=== PATIENT | female | born 1975 | race Caucasian/White ===

== ENCOUNTER 2018-03-05 15:41 | Outpatient (REF) | payer BC, SELFPAY ==
--- NOTE | 2018-03-05 11:45 | PAPFT_PTH ---
PATIENT: Princess Pitt LOC: [facility] U#:[id number] AGE/SX: 42/F ROOM: RE03/05/[address]: Rubi Merino MD, DC : 1975 BED: DIS: 03/05/2018 SPEC #: [id number] RECD: 03/06/18 12:57 STATUS: STEPHANIE REQ #: [id number] AUGIE: 03/05/18 11:[address]: Rubi Merino DEPT: [facility] Cytology RECD BY: Clarissa Holm Tissues: 1 - CX/ENDOCX FOR PAP SMEARS Procedures: PAP THIN PREP/UVM Screening HPV DNA PROBE Comments: [id number]
== END 2018-03-05 15:42 ==
LOC: LBN 15:41
PROVIDERS: PCP Family Medicine; Visit Provider Family Medicine
DX: Z12.4 Encounter for screening for malignant neoplasm of cervix (principal); Z11.51 Encounter for screening for human papillomavirus (HPV)
CPT/HCPCS: 88142; 87624

== ENCOUNTER 2018-07-13 00:47 | Outpatient (CLI) | payer BC, SELFPAY ==
--- NOTE | 2018-07-13 13:19 | DI.COMBO_ITS ---
SYMPTOM/DIAGNOSIS: RT BREAST PAIN, LUMP, N64.4,N63.0 MAMMOGRAMS AND RIGHT BREAST ULTRASOUND: Mammograms were interpreted according to the usual protocol including computer analysis with CAD system, tomosynthesis and C view imaging. A marker was placed on the area of the palpable abnormality at the inferior right breast. There are no prior mammograms. The breasts are composed of scattered fibroglandular densities. Breast density, Category B. No suspicious masses or suspicious microcalcifications are seen. No abnormality is seen in the area marked. No skin thickening or skin calcifications are seen. Right breast ultrasound shows a small area of decreased echogenicity in the subcutaneous fat at the inferior right breast, 4 cm. from the nipple, corresponding to the palpable abnormality. There is mild skin thickening in this location. The findings may represent a small area of inflammation. Clinical correlation is recommended. IMPRESSION: Category 2, negative mammogram and right breast ultrasound with benign findings of a 4 mm., hypoechoic area in the skin. No abnormality is seen within the breast tissue. MQSA ASSESSMENT OF FINDINGS: Negative with benign findings. Category 2. Patient will receive a letter notifying them of these results. BI-RADS category B. There are scattered areas of fibroglandular density.
== END 2018-07-13 01:07 ==
PROVIDERS: PCP Family Medicine; Visit Provider Family Medicine
DX: N64.4 Mastodynia (principal); N63.10 Unspecified lump in the right breast, unspecified quadrant; N60.81 Other benign mammary dysplasias of right breast
CPT/HCPCS: 76642; 77062; 77066; G0279

== ENCOUNTER 2019-03-08 11:38 | Outpatient (CLI) | payer BC, SELFPAY ==
[2019-03-08 15:46] LABS: TSH (W/Ref FT4) 0.43 uIU/mL (0.36-3.74)
== END 2019-03-08 11:58 ==
PROVIDERS: PCP Family Medicine; Visit Provider Family Medicine
DX: E03.9 Hypothyroidism, unspecified (principal)
CPT/HCPCS: 36415; 84443

== ENCOUNTER 2019-09-19 14:25 | Outpatient (CLI) | payer BC, SELFPAY ==
[2019-09-19 15:43] LABS: Anion Gap 10.1 mmol/L (3-11); BUN 15 mg/dL (7-18); CO2 28.9 mmol/L (21.0-32.0); CREATININE 0.67 mg/dL (0.55-1.02); Calcium 9.1 mg/dL (8.5-10.1); Calculated LDL 140 mg/dL (<100); Chloride 103 mmol/L (98-107); Cholesterol 228 mg/dL (<200); Glucose 90 mg/dL (74-106); HDL Cholesterol 70 mg/dL (40-60); Potassium 4.1 mmol/L (3.5-5.1); Sodium 142 mmol/L (136-145); TSH (W/Ref FT4) 4.32 uIU/mL (0.36-3.74); Triglyceride 90 mg/dL (<150)
[2019-09-19 16:01] LABS: FREE T4 1.15 ng/dL (0.76-1.46)
== END 2019-09-19 14:45 ==
PROVIDERS: PCP Family Medicine
DX: E03.9 Hypothyroidism, unspecified (principal); F41.8 Other specified anxiety disorders; R00.2 Palpitations; G47.00 Insomnia, unspecified; Z00.00 Encounter for general adult medical examination without abnormal findings
CPT/HCPCS: 36415; 80048; 80061; 84439; 84443

== ENCOUNTER 2019-11-05 01:29 | Outpatient (CLI) | payer BC, SELFPAY | END 2019-11-05 01:49 | PROVIDERS: PCP Family Medicine; Visit Provider Family Medicine | DX: E03.9 Hypothyroidism, unspecified (principal) | CPT/HCPCS: 36415; 84443 ==

== ENCOUNTER 2020-03-17 02:57 | Outpatient (CLI) | payer BC, SELFPAY | END 2020-03-17 03:17 | PROVIDERS: PCP Family Medicine; Visit Provider Family Medicine | DX: E03.9 Hypothyroidism, unspecified (principal); R00.2 Palpitations | CPT/HCPCS: 36415; 84443 ==

== ENCOUNTER 2020-10-15 15:06 | Outpatient (REF) | payer BC, SELFPAY ==
--- NOTE | 2020-10-16 | PAPFT_PTH ---
PATIENT: Princess Pitt LOC: [facility] U#:[id number] AGE/SX: 45/F ROOM: RE10/15/[address]: Rubi Merino MD, DC : 1975 BED: DIS: 10/15/2020 SPEC #: [id number] RECD: 10/16/20 12:57 STATUS: STEPHANIE REQ #: [id number] AUGIE: 10/16/20 00:[address]: Rubi Merino DEPT: [facility] Cytology RECD BY: Clarissa Holm Tissues: 1 - CX/ENDOCX FOR PAP SMEARS Procedures: PAP THIN PREP/UVM Screening HPV DNA PROBE Comments: [id number] (CHLAMYDIA/GC)
[2020-10-19 15:50] LABS: Chlamydia Result Negative (Negative); GC Result Negative (Negative)
== END 2020-10-15 15:07 | disposition home or self-care (01) ==
LOC: LBN 15:06
PROVIDERS: PCP Family Medicine; Visit Provider Family Medicine
DX: Z11.3 Encounter for screening for infections with a predominantly sexual mode of transmission (principal); Z12.4 Encounter for screening for malignant neoplasm of cervix; Z11.51 Encounter for screening for human papillomavirus (HPV)
CPT/HCPCS: 87491; 87591; 88142; 87624

== ENCOUNTER 2020-12-30 16:30 | Emergency (ER) | payer BC, SELFPAY ==
[2020-12-30] VITALS (35 sets, daily range): BP systolic 102–132; BP diastolic 46–84; PULSE 65–86; RESP 11–20; TEMP 36.1; O2SAT 96–100
--- NOTE | 2020-12-30 16:30 | RT.EKG_ITS ---
APPROVED REPORT Exam: Resting ECG Reason for Exam: chest pain Patient Location: E HR:77 bpm ECG Measurements Heart Rate 77 AXIS IN 129 P 19 QRSd 91 QRS 63 QT 369 T 28 QTc 419 Conclusion Sinus rhythm...normal P axis, V-rate 60- 99. No STEMI. I have reviewed and interpreted ECG and agree with software generated interpretation.
--- NOTE | 2020-12-30 16:45 | DI.RAD_ITS ---
Exam(s) XR CHEST 2V PA LATERAL EXAM: XR CHEST 2V PA LATERAL CLINICAL HISTORY: chest pain TECHNIQUE: 2D digital imaging was performed. COMPARISON: No exams were available for comparison FINDINGS: MEDIASTINUM: Normal. HEART: Normal. PULMONARY VASCULATURE: Normal. LUNGS: Clear. PLEURAL SPACE: No pleural effusion or pneumothorax. BONE:Within normal limits for the patient's age. OTHER FINDINGS:Normal. IMPRESSION: No acute pulmonary findings. DATA REPOSITORY: RADIATION DOSE DELIVERED:
[2020-12-30] MEDS: Aspirin 81 MG CHEW 324 MG CH (17:05)
[2020-12-30] MEDS: Normal Saline 1,000 ML 1000 ML IV (17:06)
[2020-12-30 17:14] LABS: Abs Immature Grans 0.03 10^3/uL (0.0-0.06); Absolute Basophil Count 0.03 10^3/uL (0.0-0.2); Absolute Eosinophil Count 0.06 10^3/uL (0.0-0.7); Absolute Lymphocyte Count 2.31 10^3/uL (1.2-3.4); Absolute Monocyte Count 0.36 10^3/uL (0.1-0.8); Absolute Neutrophil Count 4.03 10^3/uL (1.2-6.7); Basophils % 0.4; Eosinophils % 0.9; HCT 39.2 % (36.0-46.0); HGB 13.3 g/dL (11.2-15.7); Immature Grans % 0.4; Lymphocytes % 33.9; MCHC 33.9 % (32.0-36.0); MCV 88.3 fL (80-95); Monocytes % 5.3; Neutrophils % 59.1; Nucleated RBC 0 %; Platelet Count 266 10^3/uL (130-400); RBC 4.44 10^6/uL (3.93-5.22); RDW 11.6 % (11.7-14.6); RDW-SD 37.7 fL; WBC 6.82 10^3/uL (4.4-10.8)
--- NOTE | 2020-12-30 17:25 | DI.VRAD_ITS ---
PROCEDURE INFORMATION: Exam: XR Chest Exam date and time: 12/30/2020 5:00 PM Age: 45 years old Clinical indication: Other: Chest pain TECHNIQUE: Imaging protocol: XR of the chest. Views: 2 views. COMPARISON: No relevant prior studies available. FINDINGS: Lungs: Unremarkable. No consolidation. Pleural spaces: Unremarkable. No pleural effusion. No pneumothorax. Heart/Mediastinum: Unremarkable. No cardiomegaly. Bones/joints: Unremarkable. IMPRESSION: No acute findings. Dictated and Authenticated by: Mckay Estes MD. Ordering:YOSI Mederos MD
[2020-12-30 17:34] LABS: ALT 36 U/L (14-59); AST 19 U/L (15-37); Albumin 3.8 g/dL (3.4-5.0); Alkaline Phosphatase 80 U/L (46-116); Anion Gap 9.1 mmol/L (3-11); BUN 12 mg/dL (7-18); Bilirubin, Total 0.2 mg/dL (0.2-1.0); CO2 27.9 mmol/L (21.0-32.0); CREATININE 0.7 mg/dL (0.55-1.02); Calcium 9.2 mg/dL (8.5-10.1); Chloride 105 mmol/L (98-107); Glucose 98 mg/dL (74-106); Sodium 142 mmol/L (136-145); Total Protein 7.3 g/dL (6.4-8.2)
--- NOTE | 2020-12-30 17:34 | ED.GENADUL_ITS ---
Discharge Plan Disposition Patient Disposition: HOME Condition: Stable Discharge Details Clinical Impression: Chest pain Primary Care Provider: Ruib Merino ED Provider: Gatito Gloria Home Meds and New Rx's Prescriptions: Continued metoprolol tartrate 50 mg tablet 50 mg PO BID Qty: 180 RF: 5 cholecalciferol (vitamin D3) [Vitamin D3] 2,000 UNIT capsule 2,000 unit PO DAILY Qty: 90 RF: 12 multivitamin [Daily Multi-Vitamin] 1 EACH tablet 1 ea PO DAILY RF: 0 albuterol sulfate [ProAir HFA] 90 mcg/actuation HFA aerosol inhaler 2 puff Inhalation Q4H PRN Qty: 1 RF: 8 selenium sulfide 2.25 % shampoo 10 ml TP DAILY Qty: 180 RF: 3 bupropion HCl 300 mg tablet extended release 24 hr 300 mg PO QAM Qty: 90 RF: 4 fluticasone propionate 50 mcg/actuation spray,suspension 2 spray NS BID PRN (Reason: allergy symptoms) Qty: 9.9 RF: 3 lorazepam 0.5 mg tablet 0.5 mg PO DAILY MDD 1 PRN (Reason: anxiety) Qty: 30 RF: 4 nortriptyline 25 mg capsule 25 mg PO HS Qty: 90 RF: 4 nystatin 100,000 unit/gram powder 1 applic Topical BID PRN (Reason: rash) Qty: 60 RF: 3 buspirone 10 mg tablet 10 mg PO TID Qty: 90 RF: 5 loratadine 10 mg tablet 10 mg PO DAILY Qty: 90 RF: 4 No Action levothyroxine 175 mcg tablet 175 mcg PO DAILY Qty: 90 RF: 5 Discharge Instructions Instructions: Chest Pain (ED) Additional Instructions: At this time your rapid cardiac rule out is unremarkable, no signs of any obvious emergent process. Please watch for new or worsening symptoms and return to the ER for any concerns. Lastly, I recommend reaching out your primary care provider tomorrow to make them aware of your ER visit and need for outpatient reevaluation. Discharge Data Discharge Date/Time-TO BE ENTERED AT DEPARTURE: 12/30/20 20:47 Medical Decision Making This is a 45-year-old female presents to the ER today reporting sharp intermittent central chest pain that began approximately 3 hours ago associated with lightheadedness, she is pain-free at this time. She appears well, nontoxic. Differential includes not excluded to ACS, PE, costochondritis, pneumonia, gastritis, esophagitis, GERD, anxiety, palpitations, etc. Will obtain IV access, give 1 L IV fluids, give a full dose aspirin and initiate cardiac work-up including D-dimer. Patient is comfortable with this plan. Laboratory values are unremarkable for any obvious emergent process. White blood cell count of 6.82, INR 1.0 D-dimer 249 chemistries are unremarkable, troponin is less than 0.05. TSH 0.10 free T4 1.47. Chest x-ray negative Initial work-up unremarkable. Upon reevaluation patient reports that she has remained pain-free. She feels as though her lightheadedness is much improving. She is remained hemodynamically stable. She is agreeable to awaiting repeat troponin and EKG at the 3-hour jaiden. Given her D-dimer is normal, will not pursue CTA of the chest. Repeat EKG performed at 195. Please see official report by Dr. Verdugo. Sinus rhythm, ventricular rate of 72. No STEMI Repeat troponin remains less than 0.05. Upon reevaluation we discussed her repeat troponin and EKG. Patient has been pain-free her entire ER visit. She reports that her lightheadedness has almost completely resolved with the IV fluid and aspirin. Clinically she appears well, nontoxic, extremely low suspicion for ACS. I do believe the patient can be safely discharged with close outpatient follow-up and encouraged to return to the ER for new or worsening symptoms. Both patient and her mother are comfortable with this plan. They have no additional questions or concerns. Medical Records Medical records reviewed: Yes I reviewed the patient's medical records. Imaging Data Radiologic Study: Attestation: I personally reviewed and interpreted this imaging study as follows: Imaging: X-Ray Radiologist's impression: Chest x-ray negative Lab Data Lab results reviewed: Yes I reviewed the patient's lab results. Labs: Laboratory Tests Range/Units 12/30/20 12/30/20 12/30/20 16:35 16:43 16:43 WBC (4.4-10.8) 10^3/uL 6.82 RBC (3.93-5.22) 10^6/uL 4.44 Hgb (11.2-15.7) g/dL 13.3 Hct (36.0-46.0) % 39.2 MCV (80-95) fL 88.3 MCH (27.0-33.0) pg 30.0 MCHC (32.0-36.0) % 33.9 RDW (11.7-14.6) % 11.6 L Plt Count (130-400) 10^3/uL 266 MPV (8.0-11.0) fL 10.0 Immature Gran % 0.4 Neutrophils % 59.1 Lymphocytes % 33.9 Monocytes % 5.3 Eosinophils % 0.9 Basophils % 0.4 Nucleated RBC % % 0 Absolute Neutrophils (1.2-6.7) 10^3/uL 4.03 Absolute Lymphocytes (1.2-3.4) 10^3/uL 2.31 Absolute Monocytes (0.1-0.8) 10^3/uL 0.36 Absolute Eosinophils (0.0-0.7) 10^3/uL 0.06 Absolute Basophils (0.0-0.2) 10^3/uL 0.03 PT (9.3-11.0) sec 10.1 INR (0.9-1.1) 1.0 APTT (21.0-27.5) sec 25.3 D-Dimer (<500) ng/mlFEU 249 Sodium (136-145) mmol/L 142 Potassium (3.5-5.1) mmol/L 4.0 Chloride (98-107) mmol/L 105 Carbon Dioxide (21.0-32.0) mmol/L 27.9 Anion Gap (3-11) mmol/L 9.1 BUN (7-18) mg/dL 12 Creatinine (0.55-1.02) mg/dL 0.7 Estimated GFR/1.73 m2 (mL/min/1.73m2) >= 60.00 Glucose (74-106) mg/dL 98 Calcium (8.5-10.1) mg/dL 9.2 Magnesium (1.8-2.4) mg/dL 2.0 Total Bilirubin (0.2-1.0) mg/dL 0.2 AST (15-37) U/L 19 ALT (14-59) U/L 36 Alkaline Phosphatase (46-116) U/L 80 Troponin I (<0.06) ng/mL < 0.05 Total Protein (6.4-8.2) g/dL 7.3 Albumin (3.4-5.0) g/dL 3.8 TSH (0.36-3.74) uIU/mL 0.10 L Free T4 (0.76-1.46) ng/dL 1.47 H Urine Color (Yellow) Urine Clarity (Clear) Urine pH (5-8) Ur Specific [place] (1.005-1.025) Urine Protein (Negative) mg/dL Urine Ketones (Negative) mg/dL Urine Blood (Negative) Urine Nitrite (Negative) Urine Bilirubin (Negative) Urine Urobilinogen (Up TO 0.2) EU/dL Ur Leukocyte Esterase (Negative) Urine RBC (0-2) HPF Urine WBC (0-5) HPF Ur Epithelial Cells (Negative) HPF Urine Crystals (Negative) HPF Urine Bacteria (Negative) HPF Urine Casts (Negative) LPF Urine Mucus (Negative) Urine Other (Negative) Ur Culture Indicated? Urine Glucose (Negative) mg/dL Range/Units 12/30/20 12/30/20 17:40 19:45 WBC (4.4-10.8) 10^3/uL RBC (3.93-5.22) 10^6/uL Hgb (11.2-15.7) g/dL Hct (36.0-46.0) % MCV (80-95) fL MCH (27.0-33.0) pg MCHC (32.0-36.0) % RDW (11.7-14.6) % Plt Count (130-400) 10^3/uL MPV (8.0-11.0) fL Immature Gran % Neutrophils % Lymphocytes % Monocytes % Eosinophils % Basophils % Nucleated RBC % % Absolute Neutrophils (1.2-6.7) 10^3/uL Absolute Lymphocytes (1.2-3.4) 10^3/uL Absolute Monocytes (0.1-0.8) 10^3/uL Absolute Eosinophils (0.0-0.7) 10^3/uL Absolute Basophils (0.0-0.2) 10^3/uL PT (9.3-11.0) sec INR (0.9-1.1) APTT (21.0-27.5) sec D-Dimer (<500) ng/mlFEU Sodium (136-145) mmol/L Potassium (3.5-5.1) mmol/L Chloride (98-107) mmol/L Carbon Dioxide (21.0-32.0) mmol/L Anion Gap (3-11) mmol/L BUN (7-18) mg/dL Creatinine (0.55-1.02) mg/dL Estimated GFR/1.73 m2 (mL/min/1.73m2) Glucose (74-106) mg/dL Calcium (8.5-10.1) mg/dL Magnesium (1.8-2.4) mg/dL Total Bilirubin (0.2-1.0) mg/dL AST (15-37) U/L ALT (14-59) U/L Alkaline Phosphatase (46-116) U/L Troponin I (<0.06) ng/mL < 0.05 Total Protein (6.4-8.2) g/dL Albumin (3.4-5.0) g/dL TSH (0.36-3.74) uIU/mL Free T4 (0.76-1.46) ng/dL Urine Color (Yellow) Yellow Urine Clarity (Clear) Clear Urine pH (5-8) 6.0 Ur Specific [place] (1.005-1.025) 1.020 Urine Protein (Negative) mg/dL Negative Urine Ketones (Negative) mg/dL Negative Urine Blood (Negative) Small H Urine Nitrite (Negative) Negative Urine Bilirubin (Negative) Negative Urine Urobilinogen (Up TO 0.2) EU/dL 0.2 Ur Leukocyte Esterase (Negative) Negative Urine RBC (0-2) HPF 0-2 Urine WBC (0-5) HPF 0-2 Ur Epithelial Cells (Negative) HPF Rare Urine Crystals (Negative) HPF Negative Urine Bacteria (Negative) HPF Negative Urine Casts (Negative) LPF Negative Urine Mucus (Negative) Negative Urine Other (Negative) Negative Ur Culture Indicated? No Urine Glucose (Negative) mg/dL Negative ECG Data Attestation: I personally reviewed and interpreted this ECG (s) as follows: Interpretation: Please see official report by Dr. Verdugo. Sinus rhythm, ventricular rate of 77. No STEMI. HPI General Mode of arrival: ambulatory . Date/Time Provider Initiated Documentation: 12/30/20 16:50 . Limitations to Documentation: no limitations . Information obtained by: patient . HPI Narrative: This is a 45-year-old female past medical history that includes anxiety, central pain syndrome, depression, anxiety, reactive airway disease, obesity, presenting to the ER complaining of chest pain. She states that while she was at work approximately 3 hours ago she developed midsternal chest pain that was sharp and intermittent in nature, associated with some lightheadedness. Currently she has no chest pain whatsoever. She reports that at the time it began she felt a little sweaty but that too has resolved. Now only feels slightly lightheaded. Denies recent illness or trauma. Denies headache, visual changes, feeling the room spinning, neck pain, fever, cough, shortness of breath, radiation of the chest pain, back pain, abdominal pain, nausea, vomiting, change in bowel or bladder function, numbness, tingling, weakness, pain or swelling in her legs. Patient reports that she has a past had palpitations and does take metoprolol for this. Initially she thought maybe she was having palpitations but did not feel the same. She denies any other cardiac history. Patient is not a smoker. Related Data Home Medications Medication Instructions Recorded Confirmed cholecalciferol (vitamin D3) 2,000 unit PO DAILY #90 tab-cap 05/08/17 12/31/20 [Vitamin D3] multivitamin [Daily Multi-Vitamin] 1 ea PO DAILY 03/05/18 12/31/20 albuterol sulfate 90 mcg/actuation 2 puff INHALATION Q4H PRN #1 10/18/19 12/31/20 aerosol inhaler canister selenium sulfide 2.25 % shampoo 10 ml TP DAILY #180 ml 02/12/20 12/31/20 bupropion HCl 300 mg 24 hr tablet, 300 mg PO QAM #90 tab 04/26/20 12/31/20 extended release fluticasone propionate 50 2 spray NS BID PRN #9.9 gm 07/14/20 12/31/20 mcg/actuation nasal spray,suspension metoprolol tartrate 50 mg tablet 50 mg PO BID #180 tab 07/23/20 12/31/20 lorazepam 0.5 mg tablet 0.5 mg PO DAILY PRN #30 tab MDD 1 08/20/20 12/31/20 nortriptyline 25 mg capsule 25 mg PO HS #90 cap 09/18/20 12/31/20 nystatin 100,000 unit/gram topical 1 applic TOPICAL BID PRN #60 gm 10/13/20 12/31/20 powder buspirone 10 mg tablet 10 mg PO TID #90 tab 11/05/20 12/31/20 loratadine 10 mg tablet 10 mg PO DAILY #90 tab 11/05/20 12/31/20 levothyroxine 175 mcg tablet 175 mcg PO DAILY #90 tab 12/31/20 12/31/20 Previous Rx's Medication Instructions Recorded cholecalciferol (vitamin D3) 2,000 unit PO DAILY #90 tab-cap 05/08/17 [Vitamin D3] albuterol sulfate 90 mcg/actuation 2 puff INHALATION Q4H PRN #1 10/18/19 aerosol inhaler canister selenium sulfide 2.25 % shampoo 10 ml TP DAILY #180 ml 02/12/20 bupropion HCl 300 mg 24 hr tablet, 300 mg PO QAM #90 tab 04/26/20 extended release fluticasone propionate 50 2 spray NS BID PRN #9.9 gm 07/14/20 mcg/actuation nasal spray,suspension metoprolol tartrate 50 mg tablet 50 mg PO BID #180 tab 07/23/20 lorazepam 0.5 mg tablet 0.5 mg PO DAILY PRN #30 tab MDD 1 08/20/20 nortriptyline 25 mg capsule 25 mg PO HS #90 cap 09/18/20 nystatin 100,000 unit/gram topical 1 applic TOPICAL BID PRN #60 gm 10/13/20 powder buspirone 10 mg tablet 10 mg PO TID #90 tab 11/05/20 loratadine 10 mg tablet 10 mg PO DAILY #90 tab 11/05/20 levothyroxine 175 mcg tablet 175 mcg PO DAILY #90 tab 12/31/20 Allergies Allergy/AdvReac Type Severity Reaction Status Date / Time adhesive Allergy Intermediate Skin Rash Verified 12/30/20 16:38 amoxicillin Allergy Intermediate Verified 12/30/20 16:38 General Stated Complaint: Chest Pain JEREMY: 2 Review of Systems Constitutional Constitutional: Denies fatigue, Denies fever(s), Denies headache(s) and Denies weakness Eyes Eyes: Denies change in vision ENT Ears, Nose, Mouth, and Throat: Denies dizziness and Denies headache(s) Cardiovascular Cardiovascular: Denies chest pain and Denies dyspnea Respiratory Respiratory: Denies cough and Denies dyspnea Gastrointestinal Gastrointestinal: Denies abdominal pain, Denies nausea and Denies vomiting Genitourinary Genitourinary: Denies dysuria Musculoskeletal Musculoskeletal: Denies back pain, Denies numbness and Denies tingling Integumentary/Breasts Skin/Breast: Denies rash Neurologic Neurologic: Denies dizziness, Denies headache(s), Denies numbness, Denies tingling and Denies weakness Psychiatric Psychiatric: Reports anxiety Endocrine Endocrine: Denies fatigue [facility] Medical History Allergic rhinitis Anxiety Central pain syndrome Coccyx pain (06/30/15) Depression with anxiety Bhavik-Valdovinos virus infection Female genital symptoms (07/26/12) Hypothyroidism Increased body mass index Lyme disease Palpitations with regular cardiac rhythm Reactive airway disease (09/16/14) Rib pain on right side Rib pain on right side Right shoulder pain Scalp itch Skin tag, acquired (03/06/17) Surgical History Appendectomy (~1983) History of appendectomy Status post tonsillectomy Tonsillectomy (~01/2012) Family History Mother Essential hypertension Depression Heart disease High cholesterol Father Alcohol abuse Essential hypertension Depression Heart disease High cholesterol Brother Alcohol abuse Asthma Depression Diabetes Brother Diabetes Asthma Alcohol abuse Maternal Grandfather , 74 Essential hypertension Heart disease Hyperlipidemia Stroke 1992 Alcohol abuse Paternal Grandfather , 46 Essential hypertension Heart disease Hyperlipidemia Alcohol abuse Maternal Grandmother Essential hypertension Heart disease Hyperlipidemia Skin cancer Paternal Grandmother , 70s Essential hypertension Heart disease Hyperlipidemia Kidney problem Colon cancer Son No problems noted. Social History Smoking/Tobacco Use Status: Former Tobacco Use Tobacco: How many years used: 20 Smokeless tobacco user: other Quit status: has quit before Second Hand Exposure: Yes Counseling given: counseling >10 minutes Smoking risk assessment performed?: Yes Alcohol Intake: current Alcohol Intake frequency: holidays/special occasions only Alcohol type: beer, wine and hard liquor Drug use: Never Substance use type: does not use Caregiver/Support person: No Household members: spouse and children Housing: house Communication Needs: None Do you need help understanding health information?: Never Pets and animals: Yes Pets and animals: cat(s) and dog(s) Sexually active: Yes Do you think of yourself as: straight/heterosexual Current gender identity: female What is your relationship status?: How often do you talk on the phone with friends or family?: three or more times per week How often do you get together with friends or relatives?: once per week How often do you attend scientology or zoroastrianism services?: 1-3 times per year Do you belong to any clubs or organized social groups?: no Panel score (0-1 are the most socially isolated patients): 2 What type of physical activity do you participate in: walking Duration: 30-45 minutes/day Frequency: 5-6 times per week Danielle/Worship: Pentecostal Special danielle needs: No Seatbelt use: always Helmet use: Yes Helmet use: always Drive intox or ride w/intox bellman driver: No Do you feel safe at home: Yes Do you feel safe in your relationship?: Yes Exam Const General: cooperative, healthy appearing, comfortable and no acute distress Orientation: alert and awake HENIA Head: normal to inspection, normocephalic and atraumatic Face and sinus: normal facial exam Mouth: moist mucous membranes Eyes General: appearance normal, both eyes and all related structures Conjunctivae: conjunctivae normal Neck Neck: normal visual inspection, full ROM, trachea midline and supple Chest Chest: normal inspection of the chest and normal palpation of entire chest wall Resp Effort & Inspection: normal respiratory effort and able to speak in complete sentences Auscultation: clear to auscultation bilaterally Cardio Rate: regular rate Rhythm: regular rhythm GI Inspection: normal to inspection and obesity Palpation: soft and nontender Back/Spine/Pelvis Back: No back tenderness Skin General skin exam: no rashes or lesions noted Neuro General: patient alert, patient awake, moves all extremities and no focal motor deficits Cognition: normal cognition Speech: speech normal Gait: normal gait Sensory Exam: no sensory deficits noted Extrem General: normal to inspection, full ROM, capillary refill normal, no pedal edema and no calf tenderness Psych Appearance: grossly normal Mental Status: mental status grossly normal Course Vital Signs Vital signs: Vital Signs Temperature 36.1 C L 12/30/20 16:33 Pulse 86 12/30/20 16:33 Respiratory Rate 18 12/30/20 16:33 Blood Pressure 132/84 12/30/20 16:33 Temperature 36.1 C L 12/30/20 16:33 Temperature Source Temporal Artery Scan 12/30/20 16:33 Pulse 86 12/30/20 16:33 Respiratory Rate 18 12/30/20 16:33 Respiratory Effort 12/30/20 16:46 Respiratory Depth Normal 12/30/20 16:46 Respiratory Pattern Normal 12/30/20 16:46 Blood Pressure 132/84 12/30/20 16:33 Blood Pressure Position Sitting 12/30/20 16:33 Oxygen Delivery Method Room Air 12/30/20 16:33 Oxygen Flow Rate 0 12/30/20 16:33 Pain Level 7 12/30/20 16:33 Lab/Test Results Lab/Test Results: Laboratory Tests Range/Units 12/30/20 16:43 WBC (4.4-10.8) 10^3/uL 6.82 RBC (3.93-5.22) 10^6/uL 4.44 Hgb (11.2-15.7) g/dL 13.3 Hct (36.0-46.0) % 39.2 MCV (80-95) fL 88.3 MCH (27.0-33.0) pg 30.0 MCHC (32.0-36.0) % 33.9 RDW (11.7-14.6) % 11.6 L Plt Count (130-400) 10^3/uL 266 MPV (8.0-11.0) fL 10.0 Immature Gran % 0.4 Neutrophils % 59.1 Lymphocytes % 33.9 Monocytes % 5.3 Eosinophils % 0.9 Basophils % 0.4 Nucleated RBC % % 0 Absolute Neutrophils (1.2-6.7) 10^3/uL 4.03 Absolute Lymphocytes (1.2-3.4) 10^3/uL 2.31 Absolute Monocytes (0.1-0.8) 10^3/uL 0.36 Absolute Eosinophils (0.0-0.7) 10^3/uL 0.06 Absolute Basophils (0.0-0.2) 10^3/uL 0.03
[2020-12-30 17:45] LABS: PTT Activated 25.3 sec (21.0-27.5); Prothrombin Time 10.1 sec (9.3-11.0)
[2020-12-30 17:52] LABS: Troponin I < 0.05 ng/mL (<0.06)
[2020-12-30 18:02] LABS: Bilirubin Negative (Negative); Blood Small (Negative); Clarity Clear (Clear); Glucose Negative (Negative); Ketones Negative (Negative); Leukocyte Esterase Negative (Negative); Nitrite Negative (Negative); Urobilinogen 0.2 EU/dL (Up TO 0.2)
[2020-12-30 18:11] LABS: Bacteria Negative HPF (Negative); C & S Indicated? No; Casts Negative LPF (Negative); Crystals Negative HPF (Negative); Epithelial Cells Rare HPF (Negative); Mucus Negative (Negative); Other Cells Negative (Negative); RBC 0-2 HPF (0-2); WBC 0-2 HPF (0-5)
[2020-12-30 18:13] LABS: FREE T4 1.47 ng/dL (0.76-1.46)
[2020-12-30 18:21] LABS: D-Dimer 249 ng/mlFEU (<500)
--- NOTE | 2020-12-30 19:45 | RT.EKG_ITS ---
APPROVED REPORT Exam: Resting ECG Reason for Exam: chest pain Patient Location: E HR:72 bpm ECG Measurements Heart Rate 72 AXIS WV 118 P 3 QRSd 93 QRS 68 QT 405 T 35 QTc 442 Conclusion Sinus rhythm...normal P axis, V-rate 60- 99. No STEMI. I have reviewed and interpreted ECG and agree with software generated interpretation.
[2020-12-30 20:16] LABS: Troponin I < 0.05 ng/mL (<0.06)
== END 2020-12-30 20:47 | disposition home or self-care (01) ==
PROVIDERS: Emergency Provider Physician Assistant; PCP Family Medicine
DX: R42 Dizziness and giddiness (principal); R07.89 Other chest pain
CPT/HCPCS: 36415; 80053; 93005; 96360; 99284; 71046; 81003; 81015; 83735; 84439; 84443; 84484; 85025; 85379; 85610; 85730; 93010; 99283

== ENCOUNTER 2021-01-17 15:41 | Outpatient (REF) | payer BC, SELFPAY ==
[2021-01-16 16:51] LABS: FREE T4 1.27 ng/dL (0.76-1.46); TSH 1.25 uIU/mL (0.36-3.74)
[2021-01-16 17:28] LABS: Vitamin B12 1604 pg/mL (193-986)
[2021-01-18 11:46] LABS: Lyme Ab w Rflx to Lyme Confirm Negative (Negative)
[2021-01-19 04:12] LABS: Anaplasma phagocytophilum Negative (Negative); B. miyamotoi PCR Negative (Negative); Babesia divergens/MO-1 Negative (Negative); Babesia duncani Negative (Negative); Babesia microti Negative (Negative); Ehrlichia chaffeensis Negative (Negative); Ehrlichia ewingii/canis Negative (Negative); Ehrlichia muris eauclairensis Negative (Negative)
== END 2021-01-17 15:42 | disposition home or self-care (01) ==
LOC: LBN 15:41
PROVIDERS: PCP Family Medicine; Visit Provider Physician Assistant
DX: R53.83 Other fatigue (principal)
CPT/HCPCS: 87798; 82607; 84439; 84443; 86618

== ENCOUNTER 2021-04-02 12:41 | Outpatient (CLI) | payer BC, SELFPAY ==
[2021-04-02 16:30] LABS: TSH (W/Ref FT4) 1.41 uIU/mL (0.36-3.74)
== END 2021-04-02 12:42 | disposition home or self-care (01) ==
LOC: LBO 12:43
PROVIDERS: PCP Family Medicine; Visit Provider Family Medicine
DX: E03.9 Hypothyroidism, unspecified (principal); F41.9 Anxiety disorder, unspecified
CPT/HCPCS: 36415; 84443

== ENCOUNTER 2021-12-02 03:44 | Outpatient (CLI) | payer BC, SELFPAY ==
[2021-12-02 11:28] LABS: Hemoglobin A1C 5.3 % (<5.7)
[2021-12-02 12:43] LABS: ALT 33 U/L (14-59); AST 13 U/L (15-37); Albumin 3.8 g/dL (3.4-5.0); Alkaline Phosphatase 77 U/L (46-116); BUN 12 mg/dL (7-18); Bilirubin, Total 0.4 mg/dL (0.2-1.0); CREATININE 0.7 mg/dL (0.55-1.02); Calcium 8.4 mg/dL (8.5-10.1); Calculated LDL 126 mg/dL (<100); Chloride 104 mmol/L (98-107); Cholesterol 217 mg/dL (<200); Glucose 108 mg/dL (74-106); HDL Cholesterol 54 mg/dL (40-60); Potassium 4.2 mmol/L (3.5-5.1); Sodium 140 mmol/L (136-145); Total Protein 6.6 g/dL (6.4-8.2); Triglyceride 185 mg/dL (<150)
[2021-12-02 15:02] LABS: FREE T4 1.02 ng/dL (0.76-1.46)
== END 2021-12-02 03:45 | disposition home or self-care (01) ==
LOC: LBO 03:44
PROVIDERS: PCP Family Medicine; Visit Provider Family Medicine
DX: Z00.00 Encounter for general adult medical examination without abnormal findings (principal); E03.9 Hypothyroidism, unspecified; E11.9 Type 2 diabetes mellitus without complications; F41.9 Anxiety disorder, unspecified
CPT/HCPCS: 36415; 80053; 80061; 83036; 84439; 84443

== ENCOUNTER 2022-02-25 01:59 | Outpatient (CLI) | payer BC, SELFPAY ==
[2022-02-25 17:37] LABS: TSH (W/Ref FT4) 0.64 uIU/mL (0.36-3.74)
== END 2022-02-25 02:00 | disposition home or self-care (01) ==
LOC: LBO 02:00
PROVIDERS: PCP Family Medicine; Visit Provider Family Medicine
DX: E03.9 Hypothyroidism, unspecified (principal)
CPT/HCPCS: 36415; 84443

== ENCOUNTER 2022-05-07 18:01 | Outpatient (REF) | payer BC, SELFPAY ==
[2022-05-09 13:54] LABS: COVID-19 RT-PCR UVMMC Result Negative (Negative)
== END 2022-05-07 18:02 | disposition home or self-care (01) ==
LOC: LBN 18:01
PROVIDERS: PCP Family Medicine; Visit Provider Physician Assistant Medical
DX: Z20.822 Contact with and (suspected) exposure to COVID-19 (principal); R09.89 Other specified symptoms and signs involving the circulatory and respiratory systems
CPT/HCPCS: U0003

== ENCOUNTER 2022-05-20 02:03 | Outpatient (CLI) | payer BC, SELFPAY ==
[2022-05-20 17:34] LABS: TSH (W/Ref FT4) 0.72 uIU/mL (0.36-3.74)
== END 2022-05-20 02:04 | disposition home or self-care (01) ==
PROVIDERS: PCP Family Medicine; Visit Provider Family Medicine
DX: E03.9 Hypothyroidism, unspecified (principal)
CPT/HCPCS: 36415; 84443

== ENCOUNTER 2022-07-23 12:48 | Outpatient (REF) | payer BC, SELFPAY ==
[2022-07-23 13:25] LABS: ALT 37 U/L (14-59); AST 19 U/L (15-37); Albumin 3.8 g/dL (3.4-5.0); Alkaline Phosphatase 84 U/L (46-116); Anion Gap 7.7 mmol/L (3-11); BUN 8 mg/dL (7-18); Bilirubin, Total 0.4 mg/dL (0.2-1.0); CO2 26.3 mmol/L (21.0-32.0); CREATININE 0.8 mg/dL (0.55-1.02); Calcium 8.7 mg/dL (8.5-10.1); Chloride 103 mmol/L (98-107); Estimated GFR 92.54 (mL/min/1.73m2); Glucose 95 mg/dL (74-106); Potassium 4.3 mmol/L (3.5-5.1); Sodium 137 mmol/L (136-145); Total Protein 7.4 g/dL (6.4-8.2)
== END 2022-07-23 12:49 | disposition home or self-care (01) ==
LOC: LBN 12:48
PROVIDERS: PCP Family Medicine; Visit Provider Nurse Practitioner Family
DX: U07.1 COVID-19 (principal)
CPT/HCPCS: 80053

== ENCOUNTER 2022-09-05 03:20 | Outpatient (CLI) | payer BC, SELFPAY ==
[2022-09-05 07:51] LABS: Hemoglobin A1C 5.1 % (<5.7)
[2022-09-05 08:07] LABS: ALT 37 U/L (14-59); AST 15 U/L (15-37); Albumin 3.6 g/dL (3.4-5.0); Alkaline Phosphatase 74 U/L (46-116); BUN 17 mg/dL (7-18); Bilirubin, Total 0.2 mg/dL (0.2-1.0); CREATININE 0.8 mg/dL (0.55-1.02); Calcium 8.9 mg/dL (8.5-10.1); Calculated LDL 105 mg/dL (<100); Chloride 104 mmol/L (98-107); Cholesterol 208 mg/dL (<200); Estimated GFR 92.54 (mL/min/1.73m2); Glucose 116 mg/dL (74-106); HDL Cholesterol 58 mg/dL (40-60); Potassium 3.6 mmol/L (3.5-5.1); Sodium 141 mmol/L (136-145); TSH (W/Ref FT4) 0.71 uIU/mL (0.36-3.74); Total Protein 6.8 g/dL (6.4-8.2); Triglyceride 229 mg/dL (<150)
[2022-09-05 08:11] LABS: Anion Gap 11.9 mmol/L (3-11); CO2 25.1 mmol/L (21.0-32.0)
== END 2022-09-05 03:21 | disposition home or self-care (01) ==
PROVIDERS: PCP Family Medicine; Visit Provider Family Medicine
DX: Z00.00 Encounter for general adult medical examination without abnormal findings (principal); E03.9 Hypothyroidism, unspecified; R73.09 Other abnormal glucose; F41.8 Other specified anxiety disorders; E78.00 Pure hypercholesterolemia, unspecified
CPT/HCPCS: 36415; 80053; 80061; 83036; 84443

== ENCOUNTER 2023-01-25 21:59 | Outpatient (REF) | payer BC, SELFPAY ==
[2023-01-25 22:27] LABS: Bacteria Rare HPF (Negative); C & S Indicated? C&S Done As Ordered; Casts Negative LPF (Negative); Crystals Negative HPF (Negative); Epithelial Cells Rare HPF (Negative); Mucus Trace (Negative)
== END 2023-01-25 22:00 | disposition home or self-care (01) ==
LOC: LBN 21:59
PROVIDERS: PCP Family Medicine; Visit Provider Physician Assistant Medical
DX: R35.0 Frequency of micturition (principal)
CPT/HCPCS: 81015; 87086

== ENCOUNTER 2023-01-26 16:11 | Day surgery (SDC) | payer BC, SELFPAY ==
--- NOTE | 2023-01-25 19:34 | W.PM.DSUDISC ---
Date of service: 01/26/23 Discharge Plan Disposition Patient Disposition: Home Condition: Good Discharge Details Reason For Visit: Screening colonoscopy Attending Provider: Adair Amador Primary Care Provider: Rubi Merino Home Meds and New Rx's Prescriptions: Continued multivitamin [Daily Multi-Vitamin] 1 EACH tablet 1 ea PO DAILY selenium sulfide 2.25 % shampoo 10 ml TP DAILY Qty: 180 3RF Rx Instructions: lather into wet hair; leave in place for approximately 3 mins ; rinse metoprolol tartrate 50 mg tablet 50 mg PO BID Qty: 180 5RF albuterol sulfate [ProAir HFA] 90 mcg/actuation HFA aerosol inhaler 2 puff Inhalation Q4H PRN Qty: 8.5 8RF Rx Instructions: ok to dispense another brand bupropion HCl 300 mg tablet extended release 24 hr 300 mg PO QAM Qty: 90 4RF buspirone 10 mg tablet 10 mg PO TID Qty: 90 5RF cholecalciferol (vitamin D3) [Vitamin D3] 50 mcg (2,000 unit) capsule 2,000 unit PO DAILY Qty: 90 12RF levothyroxine 200 mcg tablet 200 mcg PO .four days per week Qty: 50 4RF levothyroxine 175 mcg tablet 175 mcg PO .three days per week Qty: 40 5RF loratadine 10 mg tablet 10 mg PO DAILY Qty: 90 4RF lorazepam 0.5 mg tablet 0.5 mg PO DAILY MDD 1 PRN (Reason: anxiety) Qty: 30 4RF Rx Instructions: 1 month supply nortriptyline 25 mg capsule 25 mg PO HS Qty: 90 4RF semaglutide 1 mg/dose (4 mg/3 mL) pen injector 1 mg subcut QWEEK Qty: 6 5RF nystatin 100,000 unit/gram powder 1 applic Topical BID PRN (Reason: rash) Qty: 60 3RF Rx Instructions: 1-3 GM BID fluticasone propionate 50 mcg/actuation spray,suspension 2 spray NS BID PRN (Reason: allergy symptoms) Qty: 16 3RF Discontinued polyethylene glycol 3350 17 gram/dose powder 238 g PO ONCE Qty: 238 0RF Rx Instructions: take per colonoscopy instructions bisacodyl [Dulcolax (bisacodyl)] 5 mg tablet,delayed release (DR/EC) 5 mg PO ONCE Qty: 4 0RF Rx Instructions: take per colonoscopy instructions Discharge Instructions Additional Instructions: 1. If tolerated, consume a soft, low fiber diet for 1-2 days. 2[address] Do not drive, drink alcohol, operate machinery, make critical decisions, or do activities that require coordination or balance for 24 hours. 3. Because air was put into your colon during the procedure, expelling air from your rectum (passing gas or farting) is normal. 4. You may not have a bowel movement for 1-3 days because of the colonoscopy prep. This is normal. 5. Go directly to the emergency room if you notice any of the following: Develop chills (warm to touch), or if you have a thermometer and your temperature is above 101 Difficulty breathing or difficultly swallowing Persistent vomiting Severe abdominal pain, other than gas cramps Severe chest pain Black, tarry stools Any bleeding ? exceeding one tablespoon 6. Call your physician if the site where your intravenous was started becomes red, swollen, painful, and warm to touch. 7. Your physician has reviewed your pre-procedure medications. Please continue to take those medications as previously ordered. You will be given specific information/education regarding any changes to your medications before leaving. Activity:: Activity as Tolerated Diet:: As Tolerated DS: Diagnosis Discharge Diagnosis (1) Screening for colon cancer: Status: Acute
--- NOTE | 2023-01-25 19:39 | W.COLOREPORT ---
Date of service: 01/26/23 Colonoscopy Report Date of procedure: 01/26/23 Pre-op diagnosis general: Screening colonoscopy Procedure: Colonoscopy Surgeon: Adair Amador Anesthesia Type: General:No Airway Complications: None Disposition: same day Indications: Princess is a 47 year old womand who needs her first screening colonoscopy Prep: Miralax/Dulcolax
--- NOTE | 2023-01-26 06:39 | W.ANESPRE ---
General Info Date of Service Date Performed: 01/26/23 Height: 5 ft 6 in Weight: 112.548 kg Body Mass Index (BMI): 40.0 Surgical Procedure: Operation Date: 01/26/23 07:35 Proposed Procedure Side Surgeon jeny Amador MD Meds Allergies and Home Medications Allergies Allergy/AdvReac Type Severity Reaction Status Date / Time adhesive Allergy Intermediate Skin Rash Verified 01/25/23 09:12 amoxicillin Allergy Intermediate Rash Verified 01/25/23 09:12 Home Medication Medication Instructions Recorded multivitamin (Daily Multi-Vitamin 1 ea PO DAILY 03/05/18 tablet) selenium sulfide 2.25 % shampoo 10 ml topical DAILY #180 mL 02/12/20 albuterol sulfate 90 mcg/actuation 2 puff inhalation Q4H PRN #8.5 09/19/22 aerosol inhaler (ProAir HFA) grams bupropion HCl 300 mg 24 hr tablet, 300 mg PO QAM #90 tabs 09/19/22 extended release buspirone 10 mg tablet 10 mg PO TID #90 tabs 09/19/22 cholecalciferol (vitamin D3) 50 2,000 unit PO DAILY #90 tab-caps 09/19/22 mcg (2,000 unit) capsule (Vitamin D3) levothyroxine 175 mcg tablet 175 mcg PO .three days per week 09/19/22 #40 tabs levothyroxine 200 mcg tablet 200 mcg PO .four days per week #50 09/19/22 tabs loratadine 10 mg tablet 10 mg PO DAILY #90 tabs 09/19/22 lorazepam 0.5 mg tablet 0.5 mg PO DAILY PRN anxiety #30 09/19/22 tabs metoprolol tartrate 50 mg tablet 50 mg PO BID #180 tabs 09/19/22 nortriptyline 25 mg capsule 25 mg PO HS #90 caps 09/19/22 semaglutide 1 mg/dose (4 mg/3 mL) 1 mg (0.75 mL) subcut QWEEK #6 mL 11/02/22 subcutaneous pen injector nystatin 100,000 unit/gram topical 1 applic topical BID PRN rash #60 11/04/22 powder grams fluticasone propionate 50 2 spray NS BID PRN allergy 11/10/22 mcg/actuation nasal symptoms #16 grams spray,suspension Current Visit Medications: Current Medications Generic Name Dose Route Start Last Admin Trade Name Freq PRN Reason Stop Dose Admin Hyoscyamine Sulfate 0.125 mg 01/25/23 19:44 Hyoscyamine 0.125 Mg Sl/Oral/Chew SL 02/24/23 19:43 DIRECTED PRN Ringer's Solution 1,000 mls @ 80 mls/hr 01/26/23 06:00 IV 02/24/23 23:59 INFUSION [facility] IV Miscellaneous Supplies 1 each 01/26/23 06:00 Iv Access IV 02/24/23 23:59 DIRECTED [place] Ondansetron HCl 4 mg 01/25/23 19:44 Ondansetron 4 Mg/2 Ml Vial IVP 02/24/23 19:43 Q4H PRN PRN Nausea / Vomiting Sodium Chloride 0 ml 01/26/23 06:00 Normal Saline Flush 10 Ml Syr IV 02/24/23 23:59 PRN PRN Sodium Chloride 0 ml 01/26/23 06:00 Normal Saline 10 Ml Vial IJ 02/24/23 23:59 DIRECTED PRN Sterile Water 0 ml 01/26/23 06:00 Water,Injection,Sterile 10 Ml Vial IJ 02/24/23 23:59 DIRECTED PRN PFSH Active Problems Active Problems: Problem Status Onset Code Annual physical exam 03/05/18 Z00.00 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 she was in highschool Female genital symptoms (07/26/12) Lyme disease Rib pain on right side Rib pain on right side Right shoulder pain Scalp itch Skin tag, acquired (03/06/17) Surgical History Surgical History Appendectomy (~1983) History of appendectomy Status post tonsillectomy Tonsillectomy (~01/2012) Tobacco Smoking/Tobacco Use Status: Former Tobacco Use Smokeless tobacco user: other Passive smoking exposure: Yes Second hand exposure: Yes Counseling given: counseling >10 minutes Alcohol Alcohol Intake: current Alcohol intake frequency: a few times a month Alcohol type: beer and wine Substance Use Substance use: Never Substance use type: does not use Vital Signs and Lab Results Lab Results Blood Type / Crossmatch: No Data to Display Complete Blood Count: No Data to Display Complete Metabolic Panel: No Data to Display Liver Function Panel: No Data to Display Coagulation Panel: No Data to Display Cardiac Panel: No Data to Display Arterial Blood Gas: No Data to Display Venous Blood Gas: No Data to Display Pancreas Panel: No Data to Display Thyroid Panel: No Data to Display Infectious Disease: No Data to Display Blood Cultures: No Data to Display Toxicology Panel: No Data to Display Panel: No Data to Display Imaging and Studies Imaging and Studies Study information below may be from another EMR and interpreted by another provider. Please see original notes in EMR for more complete details. EKG Summary: EKG PATIENT NAME: Go Pitt #: [id number] ORDERING PROVIDER: Gatito Gloria #: [id number] PRIMARY CARE PROVIDER:ANDREW ROJAS MD, DC DATE/TIME OF SERVICE: 12/30/201956 : 1975PERFORMING LOCATION: ER APPROVED REPORT Exam: Resting ECG Reason for Exam: chest pain Patient Location: E HR:72 bpm ECG Measurements Heart Rate 72 AXIS [place] 118 P 3 QRSd 93 QRS 68 QT 405 T35 QTc 442 Conclusion Sinus rhythm...normal P axis, V-rate 60- 99. No STEMI. I have reviewed and interpreted ECG and agree with software generated interpretation. <Electronically signed by ROMY HURT DO in [place]> E-Sign Date: 12/30/20 E-Sign Time: 2154 ADDENDUM APPROVED REPORT Exam: Resting ECG Reason for Exam: chest pain Patient Location: E HR:72 bpm ECG Measurements Heart Rate 72 AXIS [place] 118 P 3 QRSd 93 QRS 68 QT 405 T35 QTc 442 Conclusion Sinus rhythm...normal P axis, V-rate 60- 99. No STEMI. I have reviewed and interpreted ECG and agree with software generated interpretation. I have reviewed and I agree with the emergency room physician's ECG interpretation. Electronically signed by: <Electronically signed by Adelfo Chacon M.D. in [place]> 12/31/20 0920 Cosigned by: Anesthesia Assessment and Plan Anesthesia History Personal History: PONV Family History: No Family History of Anesthesia Complications Exercise Tolerance Exercise Tolerance: Metabolic Equivalents>4 Pertinent Negatives Pertinent Negatives: No Symptoms of GERD, No Major Cardiovascular Symptoms or Complaints, No Major Pulmonary Symptoms or Complaints and No History of CVA/TIA Cardiac & Pulmonary Exam Cardiac Exam: Normal S1/S2 Heart Sounds Pulmonary Exam: Clear Bilateral Breath Sounds Implantable Cardiac Device Does patient have a Pacemaker or an ICD?: No Airway Exam Known Difficult Airway: No Mallampati Class: 2 Mouth Opening: Normal (> 3cm) Thyromental Distance: Greater than 3 cm Neck Range of Motion: Full ROM Neck Circumference: Normal Teeth Condition: Normal Dentition ASA Classification ASA Score: ASA 3 Emergency Case?: No NPO Status NPO Status: NPO Clears >2 hours, Solids >8 hours Status Status: Negative HCG Anesthesia Plan Resuscitation Status: Full Code Anesthesia Technique: General Anesthesia Airway Planned: Natural Airway Monitors Used: Standard Monitors
== END 2023-01-26 16:12 | disposition home or self-care (01) ==
LOC: SUR 03-29 16:11
PROVIDERS: PCP Family Medicine; Visit Provider Surgery
CPT/HCPCS: J2001

== ENCOUNTER 2023-02-15 21:13 | Outpatient (REF) | payer BC, SELFPAY | END 2023-02-15 21:14 | disposition home or self-care (01) | LOC: LBN 21:13 | PROVIDERS: PCP Family Medicine; Visit Provider Family Medicine | DX: N90.7 Vulvar cyst (principal); R30.0 Dysuria; L29.8 Other pruritus | CPT/HCPCS: 87480; 87510; 87660 ==

== ENCOUNTER 2023-06-05 12:59 | Outpatient (REF) | payer BC, SELFPAY | END 2023-06-05 13:00 | disposition home or self-care (01) | LOC: LBN 12:59 | PROVIDERS: PCP Family Medicine; Visit Provider Nurse Practitioner Family | DX: R30.0 Dysuria (principal) | CPT/HCPCS: 87077; 87086; 87186 ==

== ENCOUNTER 2023-06-16 22:36 | Outpatient (REF) | payer BC, SELFPAY ==
[2023-06-16 12:54] LABS: Bilirubin Negative (Negative); Blood Negative (Negative); Clarity Cloudy (Clear); Glucose Negative (Negative); Ketones Trace mg/dL (Negative); Leukocyte Esterase Negative (Negative); Nitrite Negative (Negative); Specific Gravity >= 1.030 (1.005-1.025); Urobilinogen 0.2 mg/dL (Up to 0.2)
== END 2023-06-16 22:37 | disposition home or self-care (01) ==
LOC: LBN 22:36
PROVIDERS: PCP Family Medicine; Visit Provider Nurse Practitioner Family
DX: N76.0 Acute vaginitis (principal); R35.0 Frequency of micturition
CPT/HCPCS: 81003; 87480; 87510; 87660

== ENCOUNTER 2023-06-29 15:05 | Outpatient (REF) | payer BC, SELFPAY ==
[2023-06-29 21:04] LABS: Bilirubin Negative (Negative); Blood Trace-intact (Negative); Clarity Clear (Clear); Glucose Negative (Negative); Ketones Negative (Negative); Leukocyte Esterase Moderate (Negative); Nitrite Negative (Negative); Specific Gravity 1.015 (1.005-1.025); Urobilinogen 0.2 mg/dL (Up to 0.2); pH 7.5 (5-8)
[2023-06-29 21:52] LABS: Bacteria Negative HPF (Negative); C & S Indicated? Yes; Crystals Negative HPF (Negative); Epithelial Cells Rare HPF (Negative); Mucus Trace (Negative); Other Cells Negative (Negative); WBC >50 HPF (0-5)
== END 2023-06-29 15:06 | disposition home or self-care (01) ==
LOC: LBN 15:05
PROVIDERS: PCP Family Medicine; Visit Provider Nurse Practitioner Family
DX: R39.89 Other symptoms and signs involving the genitourinary system (principal); R82.998 Other abnormal findings in urine
CPT/HCPCS: 87077; 81003; 81015; 87086; 87186

== ENCOUNTER 2023-08-29 12:10 | Outpatient (REF) | payer BC, SELFPAY ==
--- NOTE | 2023-08-29 13:30 | PAPFT_PTH ---
PATIENT: Princess Pitt LOC: [facility] U#:[id number] AGE/SX: 48/F ROOM: RE08/29/[address]: Rubi Merino MD, DC : 1975 BED: DIS: 08/29/2023 SPEC #: [id number] RECD: 08/30/23 12:52 STATUS: STEPHANIE REQ #: [id number] AUGIE: 08/29/23 13:[address]: Rubi Merino [facility] Cytology RECD BY: Clarissa Holm Tissues: 1 - CX/ENDOCX FOR PAP SMEARS Procedures: PAP THIN PREP/UVM Screening HPV DNA PROBE Comments: [id number]
== END 2023-08-29 12:11 | disposition home or self-care (01) ==
LOC: LBN 12:10
PROVIDERS: PCP Family Medicine; Visit Provider Family Medicine
DX: Z12.4 Encounter for screening for malignant neoplasm of cervix (principal)
CPT/HCPCS: 88142; 87624

== ENCOUNTER 2023-09-27 16:54 | Outpatient (REF) | payer BC, SELFPAY ==
[2023-09-29 14:12] LABS: Chlamydia Result Negative (Negative); GC Result Negative (Negative)
== END 2023-09-27 16:55 | disposition home or self-care (01) ==
LOC: LBN 16:54
PROVIDERS: PCP Family Medicine; Visit Provider Obstetrics & Gynecology
DX: Z11.3 Encounter for screening for infections with a predominantly sexual mode of transmission (principal)
CPT/HCPCS: 87491; 87591

== ENCOUNTER 2023-11-21 05:14 | Outpatient (CLI) | payer BC, SELFPAY ==
[2023-11-21 12:34] LABS: ALT 35 U/L (14-59); AST 15 U/L (15-37); Albumin 3.8 g/dL (3.4-5.0); Alkaline Phosphatase 57 U/L (46-116); Anion Gap 10.2 mmol/L (3-11); BUN 13 mg/dL (7-18); Bilirubin, Total 0.4 mg/dL (0.2-1.0); CO2 25.8 mmol/L (21.0-32.0); CREATININE 0.7 mg/dL (0.55-1.02); Calcium 8.6 mg/dL (8.5-10.1); Calculated LDL 79 mg/dL (<100); Chloride 107 mmol/L (98-107); Cholesterol 155 mg/dL (<200); Estimated GFR 107.95 (mL/min/1.73m2); Glucose 89 mg/dL (74-106); HDL Cholesterol 58 mg/dL (40-60); Potassium 3.9 mmol/L (3.5-5.1); Sodium 143 mmol/L (136-145); TSH (W/Ref FT4) 0.21 uIU/mL (0.36-3.74); Triglyceride 92 mg/dL (<150)
[2023-11-21 12:50] LABS: FREE T4 1.37 ng/dL (0.76-1.46)
== END 2023-11-21 05:15 | disposition home or self-care (01) ==
LOC: LBO 05:14
PROVIDERS: PCP Family Medicine; Visit Provider Family Medicine
DX: E03.9 Hypothyroidism, unspecified (principal); Z00.00 Encounter for general adult medical examination without abnormal findings; E11.9 Type 2 diabetes mellitus without complications; I10 Essential (primary) hypertension
CPT/HCPCS: 36415; 80053; 80061; 83036; 84439; 84443

== ENCOUNTER 2023-12-12 11:45 | Outpatient (CLI) | payer BC, SELFPAY ==
[2023-12-12 12:23] LABS: Abs Immature Grans 0.04 10^3/uL (0.0-0.06); Absolute Basophil Count 0.03 10^3/uL (0.0-0.2); Absolute Eosinophil Count 0.06 10^3/uL (0.0-0.7); Absolute Lymphocyte Count 2.66 10^3/uL (1.2-3.4); Absolute Neutrophil Count 3.55 10^3/uL (1.2-6.7); Basophils % 0.4 %; Eosinophils % 0.9 %; HCT 42.3 % (36.0-46.0); HGB 14.1 g/dL (11.2-15.7); Immature Grans % 0.6 %; Lymphocytes % 39.5 %; MCH 29.8 pg (27.0-33.0); MCHC 33.3 % (32.0-36.0); MCV 89 fL (80-95); MPV 10.2 fL (8.0-11.0); Monocytes % 5.9 %; Neutrophils % 52.7 %; Platelet Count 258 10^3/uL (130-400); RBC 4.73 10^6/uL (3.93-5.22); RDW 11.9 % (11.7-14.6); RDW-SD 39.1 fL; WBC 6.74 10^3/uL (4.4-10.8)
== END 2023-12-12 11:46 | disposition home or self-care (01) ==
LOC: LBO 11:46
PROVIDERS: PCP Family Medicine; Visit Provider Obstetrics & Gynecology
DX: N92.4 Excessive bleeding in the premenopausal period (principal)
CPT/HCPCS: 36415; 85025

== ENCOUNTER → 2023-12-19 03:53 | Outpatient (CLI) | payer BC, SELFPAY ==
--- NOTE | 2023-12-19 08:00 | DI.MAMMO_ITS ---
Exam(s) MAMMO SCREENING EXAM: MAMMO SCREENING CLINICAL HISTORY: screening,Z12.39 TECHNIQUE: Mammograms were interpreted according to the usual protocol including computer analysis w [employer] CAD system, tomosynthesis and C-view imaging. COMPARISON: 2018 FINDINGS: The breasts are composed of scattered fibroglandular densities, Breast Density category B. No suspicious masses or suspicious microcalcifications are seen. No skin thickening or abnormal axillary lymph nodes are seen. There has been no significant change from prior exams. IMPRESSION: BI-RADS Category 1, Negative mammogram Yearly screening mammography is recommended. Breast Density - Category B, scattered fibroglandular densities. A negative radiographic report should not delay biopsy if a dominant or clinically suspicious mass is present. Up to ten percent of cancers are not identified on mammography. A negative report may reinforce clinical impression. Adenosis and dense breasts may obscure an underlying neoplasm. False positive reports average 6 to 10%. Patient will receive a letter notifying them of these results.
== END ==
PROVIDERS: PCP Family Medicine; Visit Provider Family Medicine
DX: Z12.31 Encounter for screening mammogram for malignant neoplasm of breast (principal)
CPT/HCPCS: 77063; 77067

== ENCOUNTER 2024-02-23 01:50 | Outpatient (CLI) | payer BC, SELFPAY ==
[2024-02-23 13:13] LABS: TSH (W/Ref FT4) 0.16 uIU/mL (0.36-3.74)
[2024-02-23 13:33] LABS: FREE T4 1.42 ng/dL (0.76-1.46)
== END 2024-02-23 01:51 | disposition home or self-care (01) ==
PROVIDERS: PCP Family Medicine; Visit Provider Family Medicine
DX: E03.9 Hypothyroidism, unspecified (principal)
CPT/HCPCS: 36415; 84439; 84443

== ENCOUNTER 2024-06-14 01:59 | Outpatient (CLI) | payer BC, SELFPAY ==
[2024-06-14 16:07] LABS: TSH (W/Ref FT4) 0.25 uIU/mL (0.36-3.74)
[2024-06-14 16:25] LABS: FREE T4 1.28 ng/dL (0.76-1.46)
== END 2024-06-14 02:00 | disposition home or self-care (01) ==
LOC: LBO 01:59
PROVIDERS: PCP Family Medicine; Visit Provider Family Medicine
DX: E03.9 Hypothyroidism, unspecified (principal)
CPT/HCPCS: 36415; 84439; 84443

== ENCOUNTER 2024-07-01 14:57 | Outpatient (REF) | payer BC, SELFPAY | END 2024-07-01 14:58 | disposition home or self-care (01) | LOC: LBN 14:57 | PROVIDERS: PCP Family Medicine; Visit Provider Nurse Practitioner Gerontology | DX: Z34.91 Encounter for supervision of normal pregnancy, unspecified, first trimester (principal); N39.0 Urinary tract infection, site not specified; R30.0 Dysuria | CPT/HCPCS: 87086 ==

== ENCOUNTER 2024-07-04 22:04 | Outpatient (REF) | payer BC, SELFPAY ==
[2024-07-04 21:42] LABS: Bilirubin Negative (Negative); Blood Negative (Negative); Clarity Clear (Clear); Glucose Negative (Negative); Ketones Negative (Negative); Leukocyte Esterase Negative (Negative); Nitrite Negative (Negative); Specific Gravity >= 1.030 (1.005-1.025); Urobilinogen 0.2 mg/dL (Up to 0.2)
== END 2024-07-04 22:05 | disposition home or self-care (01) ==
LOC: LBN 22:04
PROVIDERS: PCP Family Medicine; Visit Provider Nurse Practitioner Gerontology
DX: R30.0 Dysuria (principal)
CPT/HCPCS: 81003; 87086

== ENCOUNTER 2024-09-23 03:02 | Outpatient (CLI) | payer BC, SELFPAY ==
[2024-09-23 13:13] LABS: ALT 19 U/L (14-59); AST 9 U/L (15-37); Albumin 3.7 g/dL (3.4-5.0); Alkaline Phosphatase 50 U/L (46-116); Anion Gap 6.8 mmol/L (3-11); BUN 13 mg/dL (7-18); Bilirubin, Total 0.51 mg/dL (0.2-1.0); CO2 28.2 mmol/L (21.0-32.0); CREATININE 0.7 mg/dL (0.55-1.02); Calcium 8.9 mg/dL (8.5-10.1); Calculated LDL 81 mg/dL (<100); Chloride 107 mmol/L (98-107); Cholesterol 154 mg/dL (<200); Estimated GFR 107.28 (mL/min/1.73m2); Glucose 86 mg/dL (74-106); HDL Cholesterol 57 mg/dL (40-60); Potassium 3.8 mmol/L (3.5-5.1); Sodium 142 mmol/L (136-145); TSH (W/Ref FT4) 0.39 uIU/mL (0.36-3.74); Total Protein 6.4 g/dL (6.4-8.2); Triglyceride 83 mg/dL (<150)
== END 2024-09-23 03:03 | disposition home or self-care (01) ==
PROVIDERS: PCP Family Medicine; Visit Provider Family Medicine
DX: E03.9 Hypothyroidism, unspecified (principal); Z00.00 Encounter for general adult medical examination without abnormal findings; I10 Essential (primary) hypertension
CPT/HCPCS: 36415; 80053; 80061; 84443

== ENCOUNTER 2024-11-21 17:19 | Outpatient (REF) | payer BC, SELFPAY ==
[2024-11-21 17:18] LABS: Bilirubin Negative (Negative); Blood Negative (Negative); Clarity Clear (Clear); Glucose Negative (Negative); Ketones Negative (Negative); Leukocyte Esterase Small (Negative); Nitrite Negative (Negative); Urobilinogen 0.2 mg/dL (Up to 0.2)
[2024-11-21 17:31] LABS: Bacteria Moderate HPF (Negative); C & S Indicated? Yes; Crystals Negative HPF (Negative); Epithelial Cells Rare HPF (Negative); Mucus Negative (Negative); RBC 0-2 HPF (0-2); WBC 20-50 HPF (0-5)
== END 2024-11-21 17:20 | disposition home or self-care (01) ==
LOC: LBN 17:19
PROVIDERS: PCP Family Medicine; Visit Provider Family Medicine
DX: R31.9 Hematuria, unspecified (principal)
CPT/HCPCS: 87077; 81003; 81015; 87086; 87186

== ENCOUNTER 2024-12-26 02:43 | Outpatient (CLI) | payer BC, SELFPAY ==
--- NOTE | 2024-12-26 07:45 | DI.MAMMO_ITS ---
Exam(s) MAMMO SCREENING EXAM: MAMMO SCREENING CLINICAL HISTORY: screening, pre breast reduction,z12.39. TECHNIQUE: Bilateral full field digital CC and MLO mammographic images were obtained with 3D tomosyn thesis and utilizing computer aided detection (CAD). COMPARISON: Prior mammograms were reviewed. FINDINGS: There are no new left breast findings. In the right breast on the MLO images there is a new asymmetric density located inferiorly measuring approximately 6 x 3 mm and located 6 cm in from the nipple. Additional imaging required. There are no malignant-appearing microcalcification groups in this region or elsewhere in either pan[address] There is no significant architectural distortion nor skin thickening-retraction. IMPRESSION: 1. No radiographic evidence of malignancy in left breast. 2. New asymmetric density-possible nodule in the right breast measuring 6 x 3 mm. Spot compression M LO view and ultrasound recommended. BI-RADS Category 0 - Incomplete: Need additional imaging evaluation Breast Density - Category C - The breast are heterogeneously dense, which may obscure small masses. Breast density Category C or D implies that the patient has dense breast tissue. Dense breast tissue can make it harder to find cancer on a mammogram. Dense breast tissue is also associated with an incr eased risk of breast cancer. This information about the result of the mammogram report was provided to the patient to raise their awareness. Use this report when you speak with the patient about their risks for breast cancer, which includes their family history. At that time, you may recommend additional screening tests (Ultrasoun d or MRI) as these tests may add significant information. A negative radiographic report should not delay biopsy if a dominant or clinically suspicious mass is present. Up to ten percent of cancers are not identified on mammography. A negative report may reinforce clinical impression. Adenosis and dense breasts may obscure an underlying neoplasm. False positive reports average 6 to 10%. Patient will receive a letter notifying them of these results.
== END 2024-12-26 03:03 ==
LOC: DI 02:43
PROVIDERS: PCP Family Medicine; Visit Provider Family Medicine
DX: Z12.31 Encounter for screening mammogram for malignant neoplasm of breast (principal); R92.333 Mammographic heterogeneous density, bilateral breasts
CPT/HCPCS: 77063; 77067

== ENCOUNTER 2025-01-01 01:10 | Outpatient (CLI) | payer BC, SELFPAY ==
--- NOTE | 2025-01-01 | DI.MAMMO_ITS ---
Exam(s) MAMMO SCREEN CALL BACK UNI EXAM: MAMMO SCREEN CALL BACK UNI CLINICAL HISTORY: R92.8 ABN Mammo, New asymmetric density-possible nodule RT breast 6X3 MM. TECHNIQUE: Craniocaudal and mediolateral oblique Full Field Digital Mammography views of the right b reast with Computer Aided Diagnosis. COMPARISON: Comparison is made with prior examinations. FINDINGS: Mammography/Tomosynthesis: Masses/Architectural Distortion: The area of concern does not persist on the additional views. No rg spicious masses or areas of architectural distortion are present. Microcalcifictions: No suspicious pleomorphic-type are seen. Skin Thickening/Nipple Retraction: None. IMPRESSION: 1. No evidence of malignancy is noted. 2. Unless there is more urgent need, follow-up screening mammography is recommended, as per [place] [employer] guidelines. 3. The findings were discussed with the patient on the date of the examination. BI-RADS Category 1 - Negative Breast Density - Category C - The breast are heterogeneously dense, which may obscure small masses. Breast density Category C or D implies that the patient has dense breast tissue. Dense breast tissue can make it harder to find cancer on a mammogram. Dense breast tissue is also associated with an incr eased risk of breast cancer. This information about the result of the mammogram report was provided to the patient to raise their awareness. Use this report when you speak with the patient about their risks for breast cancer, which includes their family history. At that time, you may recommend additional screening tests (Ultrasoun d or MRI) as these tests may add significant information. A negative radiographic report should not delay biopsy if a dominant or clinically suspicious mass is present. Up to ten percent of cancers are not identified on mammography. A negative report may reinforce clinical impression. Adenosis and dense breasts may obscure an underlying neoplasm. False positive reports average 6 to 10%. Patient will receive a letter notifying them of these results.
== END 2025-01-01 01:30 ==
LOC: DI 01:10
PROVIDERS: PCP Family Medicine; Visit Provider Family Medicine
DX: Z12.31 Encounter for screening mammogram for malignant neoplasm of breast (principal); R92.8 Other abnormal and inconclusive findings on diagnostic imaging of breast; R92.333 Mammographic heterogeneous density, bilateral breasts
CPT/HCPCS: 77063; 77067

== ENCOUNTER 2025-03-10 04:35 | Outpatient (CLI) | payer BC, SELFPAY ==
[2025-03-10 17:59] LABS: Hemoglobin A1C < 4.5 % (<5.7)
[2025-03-10 20:00] LABS: ALT 22 U/L (14-59); AST 10 U/L (15-37); Albumin 4.0 g/dL (3.4-5.0); Alkaline Phosphatase 50 U/L (46-116); Anion Gap 5.9 mmol/L (3-11); BUN 14 mg/dL (7-18); Bilirubin, Total 0.5 mg/dL (0.2-1.0); CO2 30.1 mmol/L (21.0-32.0); Calcium 9.0 mg/dL (8.5-10.1); Calculated LDL 97 mg/dL (<100); Chloride 107 mmol/L (98-107); Cholesterol 191 mg/dL (<200); Estimated GFR 111.34 (mL/min/1.73m2); Glucose 71 mg/dL (74-106); HDL Cholesterol 81 mg/dL (>or=50); Potassium 3.9 mmol/L (3.5-5.1); Sodium 143 mmol/L (136-145); TSH (W/Ref FT4) 0.32 uIU/mL (0.36-3.74); Total Protein 7.0 g/dL (6.4-8.2); Triglyceride 68 mg/dL (<150)
== END 2025-03-10 04:36 | disposition home or self-care (01) ==
LOC: LBO 04:36
PROVIDERS: PCP Family Medicine; Visit Provider Family Medicine
DX: E11.9 Type 2 diabetes mellitus without complications (principal); E03.9 Hypothyroidism, unspecified; I10 Essential (primary) hypertension
CPT/HCPCS: 36415; 80053; 80061; 83036; 84439; 84443

== ENCOUNTER 2025-06-05 01:38 | Outpatient (CLI) | payer BC, SELFPAY ==
[2025-06-05 17:32] LABS: TSH (W/Ref FT4) 0.18 uIU/mL (0.36-3.74)
== END 2025-06-05 01:39 | disposition home or self-care (01) ==
PROVIDERS: PCP Family Medicine; Visit Provider Family Medicine
DX: E03.9 Hypothyroidism, unspecified (principal)
CPT/HCPCS: 36415; 84439; 84443